=== PATIENT | female | born 1935 | race Caucasian/White ===

== ENCOUNTER 2018-05-02 19:28 | Inpatient (IN) | payer OTHER ==
[~2018-05-02] VITALS: Ht 149.9 cm; Wt 97.2 kg
[~2018-05-02 19:28] MED LIST: AMLODIPINE BESYL5 MG PO; ASPIR 8181 M1 PO; BISOPROLOL-HCT1 EACH PO; COQ-10100 MG PO; CRESTOR5 MG PO; LISINOPRIL40 MG PO; LORTAB 5-325 M1 EACH PO; MELOXICAM7.5 MG PO; OMEPRAZOLE20 MG PO; VITAMIN D31000 UNIT PO
[2018-05-02 20:06] LABS: HEMATOCRIT 42.9 % (36.0-46.0); HEMOGLOBIN 14.3 G/DL (11.9-15.5); MCH 30.7 PG (29.0-34.0); MCHC 33.3 G/DL (30.0-36.0); MCV 92.1 FL (83-99); PLATELET COUNT 166 K/uL (156-360); RBC DIS.WIDTH-CV 13.6 % (11.8-14.6); RBC DIS.WIDTH-SD 46.2 % (39-53); RED BLOOD COUNT 4.66 M/uL (3.80-5.20); WHITE BLOOD COUNT 10.1 K/uL (4.1-10.2)
[2018-05-02 20:11] LABS: CHLORIDE 107 mEq/L (99-109); POTASSIUM 4.2 mEq/L (3.7-5.4); SODIUM 140 mEq/L (136-147)
[2018-05-02 20:13] LABS: GLUCOSE 183 mg/dL (70-99)
[2018-05-02 20:16] LABS: CREATININE 1.5 mg/dL (0.6-1.3); GFR ESTIMATE (CALCULATED) 35 mL/min/
[2018-05-02 20:17] LABS: UREA NITROGEN (BUN) 35 mg/dL (9-23)
[2018-05-02 20:24] LABS: TROP-I INTERPRETATION NEGATIVE; TROPONIN-I 0.04 ng/mL (0.0-0.30)
[2018-05-02 20:40] LABS: APPEARANCE CLOUDY ((CLEAR)); BILIRUBIN NEGATIVE; BLOOD LARGE; COLOR YELLOW ((YELLOW)); GLUCOSE (STRIP) NEGATIVE; KETONES NEGATIVE; LEUKOCYTES LARGE; NITRITE POSITIVE; PROTEIN (STRIP) 30; SPECIFIC GRAVITY 1.013 (1.000-1.030); UROBILINOGEN 0.2 MG/DL (0.2-1.0)
[2018-05-02 20:57] LABS: INTER. NORMALIZED RATIO 1.7
[2018-05-02 21:00] LABS: PTT 26.5 SEC (25-37)
[2018-05-02 21:15] LABS: BACTERIA 4+ /HPF; EPITHELIAL CELLS 1+ /HPF; MUCUS NONE SEEN /LPF; RED BLOOD CELLS TNTC /HPF (0-5)
[2018-05-03] MEDS ORDERED: LORAZEPAM0.5 MG PO (01:22)
[2018-05-03] MEDS ORDERED: XARELTO15 MG PO (01:23)
[2018-05-03] MEDS ORDERED: CARDIZEM60 MG PO (01:23)
[2018-05-03] MEDS ORDERED: LETROZOLE2.5 MG PO (01:24)
[2018-05-03] MEDS ORDERED: FUROSEMIDE20 MG PO (01:26)
[2018-05-03] MEDS ORDERED: FLONASE16 G1 BOTH NARES (01:29)
[2018-05-03] MEDS ORDERED: BISOPROLOL FUMA10 MG PO (01:31)
[2018-05-03] MEDS ORDERED: MAGNESIUM 300300 MG PO (01:32)
[2018-05-03] MEDS ORDERED: ZYRTEC10 M3 PO (01:34)
[2018-05-03] MEDS ORDERED: TRIAMCINOLONE A15 GM TP (01:36)
[2018-05-03 12:13] VITALS: BP 108/70
[2018-05-03 16:14] VITALS: BP 132/83
[2018-05-03 21:00] VITALS: BP 96/53
[2018-05-04] VITALS (7 sets, daily range): BP systolic 115–146; BP diastolic 66–93
[2018-05-04 05:55] LABS: BASOPHIL (%) 0.3 % (0-1); BASOPHIL COUNT 0.1 K/uL (0-0.1); EOSINOPHIL (%) 0.3 % (0-5); EOSINOPHIL COUNT 0.1 K/uL (0-0.3); HEMATOCRIT 36.9 % (36.0-46.0); LYMPHOCYTE (%) 6.8 % (15-42); LYMPHOCYTE COUNT 1.5 K/uL (1.0-2.8); MCH 30.3 PG (29.0-34.0); MCHC 32.2 G/DL (30.0-36.0); MCV 93.9 FL (83-99); MONOCYTE (%) 5.4 % (3-12); MONOCYTE COUNT 1.2 K/uL (0-0.8); NEUTROPHIL (%) 85.2 % (45-76); NEUTROPHIL COUNT 18.3 K/uL (1.8-6.4); PLATELET COUNT 130 K/uL (156-360); RBC DIS.WIDTH-CV 13.9 % (11.8-14.6); RBC DIS.WIDTH-SD 47.6 % (39-53); RED BLOOD COUNT 3.93 M/uL (3.80-5.20); WHITE BLOOD COUNT 21.5 K/uL (4.1-10.2)
[2018-05-04 06:05] LABS: HEMOGLOBIN 11.9 G/DL (11.9-15.5)
[2018-05-04 06:11] LABS: CHLORIDE 107 MEQ/L (99-109); GFR ESTIMATE (CALCULATED) 56 mL/min/; GLUCOSE 142 mg/dL (70-99); SODIUM 139 MEQ/L (136-147); UREA NITROGEN (BUN) 29 mg/dL (9-23)
[2018-05-05 02:30] VITALS: BP 158/87
[2018-05-05 08:06] VITALS: BP 122/80
[2018-05-05 12:07] VITALS: BP 138/82
[2018-05-05 15:00] VITALS: BP 127/82
[2018-05-05 19:14] VITALS: BP 125/73
[2018-05-05 23:46] VITALS: BP 147/85
[2018-05-06] VITALS (7 sets, daily range): BP systolic 130–148; BP diastolic 71–96
[2018-05-06 06:03] LABS: BASOPHIL (%) 0.6 % (0-1); BASOPHIL COUNT 0.1 K/uL (0-0.1); EOSINOPHIL (%) 1.6 % (0-5); EOSINOPHIL COUNT 0.2 K/uL (0-0.3); HEMATOCRIT 37.9 % (36.0-46.0); HEMOGLOBIN 12.3 G/DL (11.9-15.5); IMMATURE GRANULOCYTE (%) 0.4 % (0.0-0.7); LYMPHOCYTE (%) 14.8 % (15-42); LYMPHOCYTE COUNT 1.5 K/uL (1.0-2.8); MCH 30.4 PG (29.0-34.0); MCHC 32.5 G/DL (30.0-36.0); MCV 93.8 FL (83-99); MONOCYTE (%) 6.7 % (3-12); MONOCYTE COUNT 0.7 K/uL (0-0.8); NEUTROPHIL (%) 75.9 % (45-76); NEUTROPHIL COUNT 7.8 K/uL (1.8-6.4); PLATELET COUNT 146 K/uL (156-360); RBC DIS.WIDTH-CV 13.8 % (11.8-14.6); RBC DIS.WIDTH-SD 47.3 % (39-53); RED BLOOD COUNT 4.04 M/uL (3.80-5.20); WHITE BLOOD COUNT 10.3 K/uL (4.1-10.2)
[2018-05-06 06:40] LABS: CHLORIDE 105 MEQ/L (99-109); CREATININE 0.8 MG/DL (0.6-1.3); GFR ESTIMATE (CALCULATED) > 59 mL/min/; GLUCOSE 126 mg/dL (70-99); SODIUM 139 MEQ/L (136-147); UREA NITROGEN (BUN) 18 mg/dL (9-23)
[2018-05-06 06:44] LABS: POTASSIUM 5.1 MEQ/L (3.7-5.4)
[2018-05-07 06:56] VITALS: BP 139/88
[2018-05-07 11:36] VITALS: BP 149/85
[2018-05-07 16:03] VITALS: BP 176/79
[2018-05-07 16:59] VITALS: BP 133/79
[2018-05-07 19:21] VITALS: BP 124/65
[2018-05-07 23:31] VITALS: BP 129/82
[2018-05-08 04:16] VITALS: BP 143/80
[2018-05-08 05:54] LABS: HEMATOCRIT 39.8 % (36.0-46.0); MCH 29.8 PG (29.0-34.0); MCHC 32.7 G/DL (30.0-36.0); MCV 91.3 FL (83-99); PLATELET COUNT 155 K/uL (156-360); RBC DIS.WIDTH-CV 13.6 % (11.8-14.6); RBC DIS.WIDTH-SD 45.8 % (39-53); RED BLOOD COUNT 4.36 M/uL (3.80-5.20); WHITE BLOOD COUNT 8.3 K/uL (4.1-10.2)
[2018-05-08 06:11] LABS: CHLORIDE 104 MEQ/L (99-109); CREATININE 0.8 MG/DL (0.6-1.3); GFR ESTIMATE (CALCULATED) > 59 mL/min/; GLUCOSE 141 mg/dL (70-99); MAGNESIUM 1.9 mg/dl (1.3-2.7); POTASSIUM 4.9 MEQ/L (3.7-5.4); SODIUM 139 MEQ/L (136-147); UREA NITROGEN (BUN) 20 mg/dL (9-23)
[2018-05-08 07:42] VITALS: BP 137/87
[2018-05-08] MEDS ORDERED: CEFTIN500 MG PO (10:18)
[2018-05-08 11:38] VITALS: BP 142/75
== END 2018-05-08 13:10 | disposition home or self-care (01) | DRG 872 ==
LOC: EME 19:28 → EDOF 05-03 02:31 → 4EAST 05-03 02:31 → ENRESERV 05-03 02:32 → 4EAST 05-03 11:34
PROVIDERS: Emergency Medicine; Hospitalist; Internal Medicine
DX: A41.51 Sepsis due to Escherichia coli [E. coli] (principal); N13.6 Pyonephrosis; E86.0 Dehydration; I48.2 Chronic atrial fibrillation; I95.2 Hypotension due to drugs; T46.1X5A Adverse effect of calcium-channel blockers, initial encounter; N21.0 Calculus in bladder; B00.1 Herpesviral vesicular dermatitis; I13.0 Hypertensive heart and chronic kidney disease with heart failure and stage 1 through stage 4 chronic kidney disease, or unspecified chronic kidney disease; I50.9 Heart failure, unspecified; E11.22 Type 2 diabetes mellitus with diabetic chronic kidney disease; N18.3 Chronic kidney disease, stage 3 (moderate); K21.9 Gastro-esophageal reflux disease without esophagitis; G47.30 Sleep apnea, unspecified; E66.9 Obesity, unspecified; E78.5 Hyperlipidemia, unspecified; Z79.82 Long term (current) use of aspirin; Z88.0 Allergy status to penicillin; Z85.3 Personal history of malignant neoplasm of breast; Z79.01 Long term (current) use of anticoagulants; Z91.040 Latex allergy status
CPT/HCPCS: 71045; 71046; 74176; 76770; 80048; 81003; 83605; 83735; 83880; 84484; 85025; 85027; 85610; 85730; 87040; 87077; 87186; 87801; 93005; 94660; 99281; 99285; J0696; J1160; J1940; J1956; J7030